=== PATIENT | male | born 1970 | race Caucasian/White ===

== ENCOUNTER 2020-02-22 18:24 | Emergency (ER) | payer OTHER ==
[~2020-02-22] VITALS: Ht 182.9 cm; Wt 99.8 kg
[2020-02-22] MEDS ORDERED: HYDROXYZINE HCL50 MG PO (18:42)
[2020-02-22] MEDS ORDERED: CHLORDIAZEPOXID25 MG PO (22:15)
[2020-02-22] MEDS ORDERED: ZOFRAN4 MG PO (22:15)
== END 2020-02-22 22:46 | disposition home or self-care (01) ==
LOC: ED 18:24
DX: F10.239 Alcohol dependence with withdrawal, unspecified (principal); Y90.1 Blood alcohol level of 20-39 mg/100 ml; Z88.8 Allergy status to other drugs, medicaments and biological substances; Z79.899 Other long term (current) drug therapy
CPT/HCPCS: 80053; 80176; 81001; 83690; 83735; 84443; 85025; 96374; 96375; 96376; 99285-25; G0480; J2060; J2405; J3411; J7030

== ENCOUNTER 2020-02-24 04:51 | Emergency (ER) | payer OTHER ==
[~2020-02-24] VITALS: Ht 182.9 cm; Wt 99.8 kg
[~2020-02-24 04:51] MED LIST: CHLORDIAZEPOXID25 MG PO; HYDROXYZINE HCL50 MG PO; ZOFRAN4 MG PO
--- OUTSIDE RECORDS SUMMARY | 2020-02-24 04:54 | XMS ---
PreManage Notification: ASHA BULLOCK [employer] Events No recent Security Events currently on file CRITERIA MET - [facility] - 2 Visits in 30 Days CARE PROVIDERS There are no care providers on record at this time. Shanthi has no Care Guidelines for this patient. Amy VIS[facility] COUNT (12 MO.) [facility] T[facility] NOTE: Visits indicate total known visits. ED/C VISIT TRACKING (12 MO.) 02/24/2020 04:52 [facility] [place] TYPE: Emergency COMPLAINT: - ALCOHOL WITHDRAWL 02/22/2020 18:25 [facility] [place] TYPE: Emergency COMPLAINT: - ALCOHOL WITHDRAW INPATIENT VISIT TRACKING (12 MO.) No inpatient visits to display in this time frame [id number]
[2020-02-24] MEDS ORDERED: ZOFRAN4 MG PO (05:03)
== END 2020-02-24 05:42 | disposition home or self-care (01) ==
LOC: ED 04:51
DX: F10.239 Alcohol dependence with withdrawal, unspecified (principal); R11.2 Nausea with vomiting, unspecified; Z88.8 Allergy status to other drugs, medicaments and biological substances; Z79.899 Other long term (current) drug therapy
CPT/HCPCS: 99284